=== PATIENT | male | born 1990 | race Caucasian/White ===

== ENCOUNTER 2016-06-02 07:51 | Emergency (ER) | payer OTHER, SELFPAY ==
[2016-06-02] MEDS ORDERED: Ondansetron HCl/PF 4 MG/2 ML Vial ONE (08:27)
[2016-06-02 08:37] LABS: #Basophils 0.1 thou/uL (0.0-0.2); #Eosinphils 0.1 thou/uL (0.0-0.7); #Lymphocytes 1.5 thou/uL (1.20-3.40); #Monocytes 0.4 thou/uL (0.11-0.59); #Neutrophils 3.6 thou/uL (1.40-6.50); %Basophils 1.2 % (0.0-1.0); %Eosinophils 1.4 % (0.0-10.0); %Monocytes 7.2 % (0.0-10.0); Hematocrit 48.8 % (42.0-52.0); Mean Platelet Volume 7.8 fL (7.4-10.4); Red Blood Cell (RBC) Count 5.38 mill/uL (4.70-6.10); White Blood Cell (WBC) Count 5.7 thou/uL (4.8-10.8)
[2016-06-02 08:43] LABS: ALT (SGPT) 40 U/L (0-55); AST (SGOT) 20 U/L (5-34); Alkaline Phosphatase 87 U/L (40-150); Anion Gap 11 mmol/L (10-20); BUN (Urea Nitrogen) 21 mg/dL (8.9-20.6); Bilirubin, Total 0.4 mg/dL (0.2-1.2); Calc. Creatinine Clearance 0 mL/min (70-130); Calcium 9.4 mg/dL (7.8-10.44); Carbon Dioxide 29 mmol/L (22-29); Chloride 102 mmol/L (98-107); Estimated GFR-MDRD 79; Lipase 23 U/L (8-78); Protein, Total 7.6 g/dL (6.0-8.3)
[2016-06-02 10:03] LABS: Bilirubin Negative (Negative); Blood, Urine Negative (Negative); Glucose, Urine (Dipstick) 500 mg/dL (Negative); Ketone, Urine Negative (Negative); Nitrite Negative (Negative); Protein, Urine (Dipstick) Negative (Neg-Trace); Urobilinogen 0.2 mg/dL (0.2-1.0)
== END 2016-06-02 10:25 | disposition home or self-care (01) ==
LOC: BURERS 07:51
DX: R11.2 Nausea with vomiting, unspecified (principal); E10.65 Type 1 diabetes mellitus with hyperglycemia; Z96.41 Presence of insulin pump (external) (internal); Z79.4 Long term (current) use of insulin
CPT/HCPCS: 36416; 80053; 81003; 83690; 85025; 96361; 96374; J2405

== ENCOUNTER 2016-07-01 16:49 | Emergency (ER) | payer SELFPAY | END 2016-07-01 17:18 | disposition home or self-care (01) | LOC: BURERS 16:49 | DX: S90.122A Contusion of left lesser toe(s) without damage to nail, initial encounter (principal); L03.031 Cellulitis of right toe; E10.9 Type 1 diabetes mellitus without complications; X58.XXXA Exposure to other specified factors, initial encounter | CPT/HCPCS: 99283 ==

== ENCOUNTER 2017-03-14 12:54 | Emergency (ER) | payer BC, OTHER ==
[2017-03-14] MEDS ORDERED: AMOXicillin 250 MG CAP ONE (13:08)
== END 2017-03-14 13:18 | disposition home or self-care (01) ==
LOC: BURERS 12:54
DX: J02.9 Acute pharyngitis, unspecified (principal); R59.0 Localized enlarged lymph nodes; E10.9 Type 1 diabetes mellitus without complications
CPT/HCPCS: 99282

== ENCOUNTER 2019-12-02 14:46 | Emergency (ER) | payer BC ==
[2019-12-02] MEDS ORDERED: Ketorolac Tromethamine 60 MG/2 ML VIAL ONE (15:06)
--- NOTE | 2019-12-02 15:27 | RAD ---
Exam: One view pelvis HISTORY: Trauma. Pain. FINDINGS: Intact bony pelvis. Intact obturator rings Sacral alar preserved. Symmetric hip joint spaces. Contour of both femoral heads are maintained unremarkable left and right femoral neck. IMPRESSION: No fracture
--- NOTE | 2019-12-02 15:37 | RAD ---
Exam:4 views right knee HISTORY: Pain. Trauma. COMPARISON: 07/19/2016 FINDINGS: Preserved joint spaces. No fractures or malalignment. No significant joint effusion. IMPRESSION: No fracture
== END 2019-12-02 15:47 | disposition home or self-care (01) ==
LOC: BURERS 14:46
DX: S83.91XA Sprain of unspecified site of right knee, initial encounter (principal); S70.311A Abrasion, right thigh, initial encounter; E10.9 Type 1 diabetes mellitus without complications; Z79.4 Long term (current) use of insulin; W23.0XXA Caught, crushed, jammed, or pinched between moving objects, initial encounter
CPT/HCPCS: 72170; 96372; J1885

== ENCOUNTER 2024-06-10 12:12 | Emergency (ER) | payer OTHER ==
[2024-06-10] MEDS ORDERED: Amoxicillin/Potassium Clav 875 MG TAB ONE (12:26)
== END 2024-06-10 12:58 | disposition home or self-care (01) ==
LOC: BURERS 12:12
DX: T81.49XA Infection following a procedure, other surgical site, initial encounter (principal); E10.9 Type 1 diabetes mellitus without complications
CPT/HCPCS: 99283